=== PATIENT | female | born 1980 | race Caucasian/White ===

== ENCOUNTER 2016-12-17 12:10 | Emergency (ER) | payer OTHER ==
[~2016-12-17] VITALS: Ht 152.4 cm; Wt 49.9 kg
[~2016-12-17 12:10] MED LIST: ACIDOPHILUS PRO1 CAP PO; ATIVAN0.5 MG PO; AUGMENTIN 875 M1 TAB PO; BACTRIM DS 8001 TAB PO; BENADRYL 50 MG50 MG PO; CALCIUM600 M2 PO; FEMARA2.5 M1 PO; KEFLEX500 MG PO; LUPRON DEPOT7.5 MG IM; MAXZIDE-25 25 M1 TAB PO; MONTELUKAST SOD10 MG PO; OXYCODONE5 MG PO; PERI-COLACE 501 TAB PO; PROBIOTIC FORMU1 CAP PO; PYRIDIUM100 MG PO; ROXICODONE5 MG PO; SMZ-TMP 800 MG-1 TAB PO; TYLENOL #31 TAB PO; TYLENOL PO; VALIUM5 M1 PO; VITAMIN C500 M6 PO; VITAMIN D1000 UNIT PO; ZOFRAN4 M1 SL
[2016-12-17 12:33] VITALS: BP 160/100
[2016-12-17] MEDS ORDERED: AUGMENTIN 875-1 EACH PO (12:34)
--- NOTE | 2016-12-17 12:34 | ED ANIMAL BITE/WOUND CHECK ---
History of Present Illness General Chief Complaint: Animal/Insect Bite Stated Complaint: DOG BITE Source: patient Exam Limitations: no limitations Vital Signs & Intake/Output Vital Signs & Intake/Output Vital Signs Date Time Temp Pulse Resp B/P B/P Pulse O2 O2 Flow FiO2 Mean Ox Delivery Rate 12/17 1233 160/100 12/17 1223 98.3 57 20 99 Room Air Room Air Allergies Coded Allergies: bacitracin (From Neosporin ([id number])) (Severe, RASH 08/06/15) neomycin (From Neosporin ([id number])) (Severe, RASH 08/06/15) polymyxin B (From Neosporin ([id number])) (Severe, RASH 08/06/15) Reconcile Medications Amoxicillin/Potassium Clav (Augmentin 875-125 Tablet) 875 MG-125 MG TABLET 1 TAB PO BID prophylaxis Ascorbate Calcium (Vitamin C) 500 MG TABLET 1 TAB PO DAILY SUPPLEMENT ( Reported) Calcium Carbonate (Calcium) 600 MG (1,500 MG) TABLET 1 TAB PO DAILY SUPPLEMENT (Reported) Cholecalciferol (Vitamin D3) (Vitamin D) 1,000 UNIT TABLET 1 TAB PO DAILY SUPPLEMENT (Reported) Letrozole (Femara) 2.5 MG TABLET 1 TAB PO DAILY CANCER (Reported) Leuprolide Acetate (Lupron Depot) 7.5 MG PI1 7.5 MG IM Q30D HRT (Reported) TRIAMTERENE/HYDROCHLOROTHIAZID (Maxzide 37.5 MG-25 MG Tablet) 37.5 MG-25 MG TABLET 1 TAB PO DAILY BP (Reported) Triage Note: PT TO ED S/P DOG BITE TO LIP AND THE FINGER COUPLE DAYS AGO, UNSURE OF DOGS SHOTS. Triage Nurses Notes Reviewed? yes Onset: Just prior to arrival Duration: day(s): (1) Timing: no prior history Injury Environment: home Is Injury an Animal Bite? Yes Animal Type: dog Context of Animal Attack: after given medication Appearance of Animal: unknown Animal Immunization Status: unknown Observation/Capture: sent to lab- euthanized Severity of Attack: bitten Severity: moderate Severity Numbers: 5 : No Patient currently breastfeeds: No HPI: Patient is a 36-year-old female presenting to the emergency department should complaint dog bite to left thumb that happened just prior to arrival. She reports that her rescue dog that she recently took and started acting weird over the past several days, and it of having a seizure and was brought back to the vet. The dog was discharged home on medications. The dog had another seizure and the patient was accidentally bitten by the dog while she was trying to give him medication. Since status of immunization is unknown the water filter cleaner recommended the patient come in for evaluation and rabies prophylaxis. It usually takes 3-4 days for testing of rabies to be performed. Patient denying any nausea vomiting fevers or chills chest pain or shortness of breath. She reports that she cleaned the wound immediately after it happened. (QIAN KHAN) Past History Travel History Traveled to [place] past 21 day No Medical History Any Pertinent Medical History? see below for history Neurological: NONE EENT: NONE Cardiovascular: hypertension Respiratory: NONE Gastrointestinal: NONE Hepatic: NONE Renal: NONE Musculoskeletal: NONE Psychiatric: NONE Endocrine: NONE Blood Disorders: NONE Cancer(s): breast cancer JEWELRY POLISHER/Reproductive: NONE History of MRSA: No History of VRE: No History of CDIFF: No Tetanus Vaccine: 08/06/15 Surgical History Surgical History: PVC ABLATION Psychosocial History Who do you live with Family Services at Home None What is your primary language Egyptian Tobacco Use: Never used ETOH Use: occasional use Illicit Drug Use: denies illicit drug use Family History Hx Contributory? No (QIAN KHAN) Review of Systems Review of Systems Constitutional: Reports: no symptoms. Comments Review of systems: See HPI, All other systems negative. Constitutional, no chills fever or weight loss HEENT: No visual changes no sore throat no congestion Cardiovascular: No chest pain ,palpitation , orthopnea or ankle swelling Skin, no jaundice no rashes Respiratory: No dyspnea cough sputum or hemoptysis GI: No nausea no vomiting : No dysuria No hematuria Muscle skeletal: no back pain, no neck pain, Neurologic: No numbness no giang, no confusion Immunology: No splenectomy or history of AIDS (QIAN KHAN) Physical Exam Physical Exam General Appearance: well developed/nourished, no apparent distress, alert, awake , comfortable Comments: Well-developed well-nourished person in no acute distress HEENT: Pupils equally round and reactive to light and accommodation. Nose is atraumatic. Neck: Normal inspection Cardiovascular: normal JVP Respiratory: No respiratory distress. Extremity: No edema, full range of motion of all digits without difficulty or pain. cap refill intact in left upper ext. Neuro: Alert oriented x3, motor sensory normal Skin: Small superficial abrasion noted to the right lower lip, no active bleeding. Does not cross vermilion border. Second laceration noted over the medial aspect of the left distal thumb. No nail involvement. Laceration is superficial. Mildly tender to palpation. No discharge. Psych: Mood and affect is normal, memory and judgment is normal. (QIAN KHAN) Progress Differential Diagnosis: abscess, cellulitis, need for prophylaxis against rabies , abrasion Plan of Care: Current Medications Sig/Fabian Start time Last Medication Dose Stop Time Status Admin Rabies Immune 1,000 UNITS ONCE ONE 12/17 1244 AC Globulin 12/17 1245 (Rabies Immune Globlulin Inj) Rabies Vaccine 1 SYR ONCE ONE 12/17 1244 AC (Rabies (Vaccine) 12/17 1245 Inj (1ML)) Comments: Given IM rabies immunoglobulin and IM rabies vaccination. Patient reports she is up-to-date with tetanus. Wound was covered with bacitracin and Band-Aids. (QIAN KHAN) Departure Departure Time of Disposition: 1231 Disposition: HOME OR SELF CARE Condition: Stable Clinical Impression Primary Impression: Need for prophylactic vaccination against rabies Secondary Impressions: Dog bite Qualifiers: Encounter type: initial encounter Qualified Code: W54.0XXA - Bitten by dog, initial encounter Referrals: TONE TORRES,JULIET Sandra (PCP/Family) Additional Instructions: Return on December 20 for your Rabies vaccination. Take Augmentin as prescribed. Departure Forms: Customer Survey General Discharge Information Prescriptions: Current Visit Scripts Amoxicillin/Potassium Clav (Augmentin 875-125 Tablet) 1 TAB PO BID #20 TAB (QIAN KHAN) PA/MAINTENANCE SERVICE DISPATCHER Co-Sign Statement Statement: ED Attending supervision documentation- x I saw and evaluated the patient. I have also reviewed all the pertinent lab results and diagnostic results. I agree with the findings and the plan of care as documented in the PA's/MAINTENANCE SERVICE DISPATCHER's documentation. [] I have reviewed the ED Record and agree with the PA's/MAINTENANCE SERVICE DISPATCHER's documentation. [] Additions or exceptions (if any) to the PAs/MAINTENANCE SERVICE DISPATCHER's note and plan are summarized below: [] (EVANS TORRES,ANTHONY)
== END 2016-12-17 13:16 ==
LOC: ERH 12:10
DX: S61.052A Open bite of left thumb without damage to nail, initial encounter (principal); W54.0XXA Bitten by dog, initial encounter; Y92.9 Unspecified place or not applicable; Y93.9 Activity, unspecified
CPT/HCPCS: 90376; 90471